=== PATIENT | female | born 1990 | race African-American/Black ===

== ENCOUNTER 2020-10-16 08:53 | Inpatient (IN) | payer OTHER ==
[2020-10-16] MEDS ORDERED: ePHEDrine SULFATE 50 MG/1 ML INJ IV PRN (10:45)
[2020-10-16] MEDS ORDERED: BUTORPHANOL 2 MG/1 ML INJ IV PRN ×2 (11:00)
[2020-10-16] MEDS ORDERED: LACTATED RINGERS 1,000 ML IV SCH (11:00)
[2020-10-16] MEDS ORDERED: ACETAMINOPHEN 325 MG TAB PO PRN (11:00)
[2020-10-16] MEDS ORDERED: OXYTOCIN DRIP 30 UNITS/500 ML BAG IV SCH ×2 (11:00)
[2020-10-16] MEDS ORDERED: LIDOCAINE (2%) 20 MG/1 ML VIAL 20 ML MDV INFILTRATI NR (11:00)
[2020-10-16 11:27] LABS: Hematocrit 34.7 % (30.3-42.9); Hemoglobin 11.7 gm/dl (10.1-14.3); Mean Corpuscular HGB Conc 34 % (30-34); Mean Corpuscular Volume 82 fl (79-97); Platelet Count 278 K/mm3 (140-440); Red Blood Count 4.22 M/mm3 (3.65-5.03); Red Cell Distribution Width 13.3 % (13.2-15.2)
[2020-10-16] MEDS ORDERED: TERBUTALINE 1 MG/1 ML INJ SUB-Q PRN (11:30)
[2020-10-16] MEDS ORDERED: fentaNYL 100 MCG/2 ML INJ IV PRN (11:30)
[2020-10-16] MEDS ORDERED: NalbUPHINE 10 MG/1 ML INJ IV PRN (11:30)
[2020-10-16] MEDS ORDERED: DINOPROSTONE 10 MG VAG SUPP VG ONE (13:09)
[2020-10-16] MEDS ORDERED: miSOPROStol 25 MCG TAB PO ONE (17:14)
[2020-10-16] MEDS: miSOPROStol 25 MCG TAB PO PRN (20:25)
[2020-10-16] MEDS ORDERED: MINERAL OIL 30 ML ORAL LIQD PO PRN (22:00)
[2020-10-17] MEDS: miSOPROStol 25 MCG TAB PO PRN ×2 (00:33→04:32)
--- NOTE | 2020-10-17 01:37 | History and Physical Report ---
History of Present Illness Date of examination: 10/17/20 Date of admission: 10/16/20 08:53 Chief complaint: scheduled induction of labor History of present illness: Pt is a 29 year old female DEISI 11/06/20 at 37w1d who presents for scheduled induction of labor secondary to gestational hypertension at term. She reports irregular contractions, and denies vaginal bleeding or leakage of fluid. She has had care at [facility] since 11 wks complicated by grandmultiparity, cystic fibrosis carrier status, h/o preclampsia in previous , H/o hemorrhage, h/o syphilis treated with titer 1:2 on 09/07/20, genital herpes without lesion or prodrome, and left labial mass x 6 years (well-circumscribed, non-tender). She is GBS negative. Pt currently denies headache, blurry vision, or RUQ pain. Past History Past Medical History: hypertension (gestational hypertension, h/o preeclampsia ) Past Surgical History: cholecystectomy REAL ESTATE DEVELOPER History: herpes, syphilis (history of, treated per patient ) Family/Genetic History: heart disease, hypertension Social history: no significant social history - Obstetrical History Expected Date of Delivery: 11/06/20 Actual Gestation: 37 Week(s) 1 Day(s) : 7 Para: 5 Hx # Term Pregnancies: 4 Number of Pregnancies: 1 Spontaneous Abortions: 1 Induced : 0 Number of Living Children: 5 Medications and Allergies Allergies Allergy/AdvReac Type Severity Reaction Status Date / Time No Known Allergies Allergy Unverified 10/16/20 10:45 Active Meds: Active Medications Acetaminophen (Acetaminophen 325 Mg Tab) 650 mg PO Q4H PRN PRN Reason: Pain, Mild (1-3) Butorphanol Tartrate (Butorphanol 2 Mg/1 Ml Inj) 1 mg IV Q2H PRN PRN Reason: Pain, Moderate(4-6) LABOR PAIN Butorphanol Tartrate (Butorphanol 2 Mg/1 Ml Inj) 2 mg IV Q2H PRN PRN Reason: Pain , Severe (7-10) Ephedrine Sulfate (Ephedrine Sulfate 50 Mg/1 Ml Inj) 10 mg IV Q2M PRN PRN Reason: Hypotension Fentanyl (Fentanyl 100 Mcg/2 Ml Inj) 100 mcg IV Q2H PRN PRN Reason: Pain,Severe (7-10) LABOR PAIN Oxytocin/Sodium Chloride (Pitocin/Ns 30 Unit/500ml) 30 units in 500 mls @ 2 mls/hr IV TITR DIMA; Protocol Lactated Ringer's (Lactated Ringers) 1,000 mls @ 125 mls/hr IV DIRECT DIMA Oxytocin/Sodium Chloride (Pitocin/Ns 30 Unit/500ml) 30 units in 500 mls @ 40 mls/hr IV TITR DIMA; Protocol Mineral Oil (Mineral Oil 30 Ml Oral Liqd) 30 ml PO QHS PRN PRN Reason: Constipation Misoprostol (Misoprostol 25 Mcg Tab) 25 mcg PO Q4H PRN PRN Reason: Labor Induction Last Admin: 10/17/20 00:33 Dose: 25 mcg Documented by: Nalbuphine HCl (Nalbuphine 10 Mg/1 Ml Inj) 10 mg IV Q2H PRN PRN Reason: Pain, Moderate (4-6) Terbutaline Sulfate (Terbutaline 1 Mg/1 Ml Inj) 0.25 mg SUB-Q ONCE PRN PRN Reason: Hyperstimulation/Hypertonicity Stop: 10/17/20 11:29 Review of Systems All systems: negative - Vital Signs Vital signs: Vital Signs Pulse BP 106 H 135/90 10/16/20 09:42 10/16/20 09:42 Temp Pulse Resp BP Pulse Ox 98.2 F 87 17 122/83 98 10/17/20 00:16 10/17/20 01:34 10/17/20 00:16 10/17/20 01:17 10/17/20 01:34 - Physical Exam Breasts: Positive: deferred Abdomen: Positive: soft (gravid ) Uterus: Positive: enlarged (gravid ) Extremities: Positive: edema (trace) - Obstetrical FHR: auscultation normal Uterine Contraction Monitor Mode: External Cervical Dilatation: 2 (per RN ) Cervical Effacement Percentage: 40 station: -3 Uterine Contraction Pattern: Irregular Uterine Tone Measurement Phase: Resting Uterine Contraction Intensity: Mild Results Result Diagrams: 10/16/20 10:00 All other labs normal. Assessment and Plan A: IUP at 37w1d Gestational Hypertension Grandmultiparity Cystic fibrosis carrier status H/o preclampsia in previous H/o hemorrhage H/o syphilis treated with titer 1:2 on 09/07/20 Genital herpes without lesion or prodrome Left labial mass x 6 years (well-circumscribed, non-tender) GBS negative P: Admit to labor and delivery Cervical Ripening (s/p cervidil, now receiving misoprostol Syphilis testing Continue to monitor maternal and status
--- NOTE | 2020-10-17 08:05 | Event Note ---
Date: 10/17/20 Pt doing well without pain medications. Category I tracing. SVE: 2. Plan to eat breakfast, shower then begin pitocin.
[2020-10-17] MEDS ORDERED: SODIUM CHLORIDE 0.9% 500 ML 500 ML IV ONE (08:06)
[2020-10-17] MEDS ORDERED: CARBOPROST TROMETHAMINE 250 MCG/1 ML INJ IM PRN (12:40)
[2020-10-17] MEDS ORDERED: miSOPROStol 200 MCG TAB PR PRN (12:40)
[2020-10-17] MEDS ORDERED: LIDOCAINE (2%) 20 MG/1 ML VIAL 20 ML MDV INFILTRATI ONE (12:40)
[2020-10-17] MEDS ORDERED: LOPERAMIDE 2 MG CAP PO PRN (12:40)
--- NOTE | 2020-10-17 12:40 | Event Note ---
Date: 10/17/20 Pt uncomfortable with contractions. Category I tracing. SVE: /-2. AROM- clear. Continue routine intrapartum care.
--- NOTE | 2020-10-17 14:11 | Procedure Note ---
OB Delivery Note - Delivery Date of Delivery: 10/17/20 Surgeon: ANA MARIA ODOM Estimated blood loss: other (400 mL) - Vaginal Delivery presentation: vertex Delivery position: OA Intrapartum events: PROM->1hr before delivery, uterine atony (s/p misoprostol 800 mcg per rectum ) Delivery induction: cervidil Delivery augmentation: rupture of membranes, pitocin Delivery monitor: external FHT, external uterine Route of delivery: Delivery placenta: spontaneous Delivery cord: nuchal cord (loose, delivered through ) Episiotomy: none Delivery laceration: none Anesthesia: intravenous - Infant A at 1 minute: 8 at 5 minutes: 9 Infant Gender: Female (2941g (6lb 7.7 oz) @ 1345 pm)
[2020-10-17] MEDS ORDERED: WITCH HAZEL/ GLYCERIN PAD TP PRN (16:15)
[2020-10-17] MEDS ORDERED: diphenhydrAMINE 25 MG CAP PO PRN (16:15)
[2020-10-17] MEDS ORDERED: OXYTOCIN DRIP 30 UNITS/500 ML BAG IV SCH (16:15)
[2020-10-17] MEDS ORDERED: BENZOCAINE/MENTHOL 20/0.5% TOP SPRAY 56 GM TP PRN (16:15)
[2020-10-17] MEDS ORDERED: LANOLIN/ZINC/DIMETHICONE (LANSINOH) 7 GM TP PRN ×2 (16:15)
[2020-10-17] MEDS ORDERED: PROMETHAZINE 25 MG RECT SUPP PR PRN (16:15)
[2020-10-17] MEDS ORDERED: MAGNESIUM HYDROXIDE (MOM) ORAL LIQD UDC PO PRN (16:15)
[2020-10-17] MEDS ORDERED: PROMETHAZINE 25 MG TAB PO PRN (16:15)
[2020-10-17] MEDS ORDERED: ONDANSETRON 4 MG/2 ML INJ IV PRN (16:15)
[2020-10-17] MEDS: IBUPROFEN 600 MG TAB PO SCH ×2 (16:41→22:17)
[2020-10-17] MEDS: FERROUS SULFATE 325 MG TAB PO SCH (22:18)
[2020-10-18] MEDS: HYDROcodone/ACETAMINOPHEN 5-325 MG TAB PO PRN ×3 (01:47→20:14)
[2020-10-18 03:21] LABS: Hematocrit 27.2 % (30.3-42.9); Hemoglobin 9.2 gm/dl (10.1-14.3)
[2020-10-18] MEDS: IBUPROFEN 600 MG TAB PO SCH (05:51)
[2020-10-18] MEDS ORDERED: MEASLES, MUMPS & RUBELLA 12,500 UNIT/0.5 ML VACCINE SUB-Q ONE (06:00)
[2020-10-18] MEDS ORDERED: TETANUS,DIPH,PERTUSS(ACELL) VACCINE 0.5 ML SYRINGE IM ONE (06:00)
[2020-10-18] MEDS: FERROUS SULFATE 325 MG TAB PO SCH ×2 (10:33→21:21)
--- NOTE | 2020-10-18 11:57 | Progress Note ---
Assessment and Plan A: PPD #1 s/p at 37 wks after induction for gestational hypertension Hemorrhage s/p misoprostol, Hemabate and second bag of pitocin, bleeding currently acceptable P: Continue to monitor BP curve and bleeding Anticipate discharge tomorrow with follow up appt in 1 wk for BP check Subjective - Subjective Date of service: 10/18/20 Principal diagnosis: s/p at term, gestational hypertension, PPH Interval history: Yesterday after delivery pt began passing large clots, and was given a second bag of pitocin and Hemabate with improvement in her bleeding. This morning she reports no more clots. She has no other complaints. Patient reports: appetite normal, voiding normally, pain well controlled, ambulating normally : doing well Objective - Vital Signs Latest vital signs: Vital Signs Temp Pulse Resp BP BP Pulse Ox 10/18/20 07:47 97.6 F 80 18 108/69 97 10/18/20 01:03 98.0 F 94 H 20 124/77 95 10/17/20 20:41 98.2 F 97 H 20 125/76 97 10/17/20 17:45 154/96 10/17/20 15:50 99.0 F 98 H 18 139/87 98 10/17/20 15:29 97 H 136/80 10/17/20 15:17 98.5 F 97 H 14 136/80 10/17/20 15:10 61 80 L 10/17/20 15:08 98 H 136/78 10/17/20 15:06 109 H 99 10/17/20 15:04 90 84 10/17/20 15:02 78 132/83 10/17/20 15:01 98 H 91 10/17/20 14:57 93 H 133/76 10/17/20 14:56 90 95 10/17/20 14:52 88 132/75 10/17/20 14:51 91 H 100 10/17/20 14:47 84 141/79 10/17/20 14:46 91 H 98 10/17/20 14:42 82 130/74 10/17/20 14:41 94 H 99 10/17/20 14:38 90 135/65 10/17/20 14:36 92 H 100 10/17/20 14:33 102 H 137/74 10/17/20 14:31 106 H 98 10/17/20 14:29 93 H 150/72 05 14:28 88 92 06 14:26 97 H 99 10/17/20 14:22 82 129/83 10/17/20 14:21 88 100 10/17/20 14:17 90 134/78 10/17/20 14:16 85 100 10/17/20 14:12 91 H 125/78 10/17/20 14:11 89 99 10/17/20 14:08 92 H 128/87 10/17/20 14:06 95 H 99 10/17/20 14:05 100 H 129/83 10/17/20 14:01 97.8 F 85 16 132/72 100 10/17/20 13:58 71 132/72 10/17/20 13:56 89 100 10/17/20 13:54 80 119/89 89 10/17/20 13:53 88 125/69 10/17/20 13:51 76 100 10/17/20 13:48 96 H 137/84 10/17/20 13:46 113 H 98 10/17/20 13:41 100 H 99 10/17/20 13:36 97 H 99 10/17/20 13:32 94 H 142/84 10/17/20 13:31 92 H 100 10/17/20 13:30 88 94 10/17/20 13:26 87 99 10/17/20 13:25 81 92 10/17/20 13:21 100 H 98 10/17/20 13:16 89 99 10/17/20 13:11 90 98 10/17/20 13:06 89 98 10/17/20 13:03 85 140/82 10/17/20 13:01 83 98 10/17/20 12:56 73 98 05 12:51 96 H 96 10/17/20 12:46 102 H 96 10/17/20 12:41 98 H 99 10/17/20 12:36 97 H 98 10/17/20 12:32 86 123/76 10/17/20 12:31 95 H 100 10/17/20 12:26 98 H 97 10/17/20 12:21 94 H 100 10/17/20 12:16 99 H 97 10/17/20 12:11 40 L 83 L 10/17/20 12:05 94 H 98 10/17/20 12:02 93 H 129/87 10/17/20 12:00 97 H 99 10/17/20 11:55 102 H 98 Intake and Output 10/17/20 10/18/20 10/18/20 22:59 06:59 14:59 Intake Total 360 240 Output Total 300 Balance 60 240 Intake: Oral 360 240 Output: Urine 300 Void 300 Other: Total, Intake Amount 360 240 Total, Output Amount 100 # Voids Void 2 - Exam Breasts: Present: deferred Uterus: Present: fundal height at umbilicus Extremities: Present: normal - Labs Labs: Abnormal lab results 10/18/20 Range/Units 02:50 Hgb 9.2 L (10.1-14.3) gm/dl Hct 27.2 L D (30.3-42.9) %
--- NOTE | 2020-10-18 12:02 | Discharge Summary ---
Providers - Providers Date of Admission: 10/16/20 08:53 Date of discharge: 10/19/20 Attending physician: ANA MARIA ODOM 10/17/20 16:15 Consult to Apartment Maintenance Technician [CONS] Routine Reason For Exam: assistance with , SNS Primary care physician: SEAFOOD CLERK Hospitalization Reason for admission: induction of labor Delivery: Procedure details: Please see delivery note. Episiotomy: none Laceration: none Other procedures: none complications: uterine atony Discharge diagnosis: IUP at term delivered [place] baby: female Hospital course: The patient was admitted the patient was admitted to the hospital for induction of labor secondary to gestational hypertension at 37 weeks. She ultimately delivered a viable female via spontaneous vaginal delivery. Her course was complicated by hemorrhage treated with misoprostol rectally, Hemabate and additional Pitocin. She met discharge criteria on day #2. She will follow-up in the office in 1 week for blood pressure check. Condition at discharge: Stable Disposition: DC-01 TO HOME OR SELFCARE - Discharge Diagnoses (1) Term of female Status: Acute (2) Multiparity, grand, in labor and delivery, delivered Status: Acute (3) hemorrhage Status: Acute Qualifiers: hemorrhage type: unspecified Qualified Code(s): O72.1 - Other immediate hemorrhage (4) Uterine atony Status: Acute (5) Gestational hypertension Status: Acute Qualifiers: Trimester: third trimester Qualified Code(s): O13.3 - Gestational [-induced] hypertension without significant proteinuria, third trimester (6) Acute blood loss anemia Status: Acute Plan - Discharge Medications Prescriptions: Ferrous Sulfate [Feosol 325 MG tab] 325 mg PO BID #60 tablet Ibuprofen [Motrin] 800 mg PO Q8HR PRN #30 tablet PRN Reason: Pain , Severe (7-10) HYDROcodone/APAP 5-325 [[place] 5/325] 1 each PO Q6HR PRN #10 tablet PRN Reason: Pain - Provider Discharge Summary Activity: routine, no sex for 6 weeks, no heavy lifting 4 weeks, no strenuous exercise Diet: routine Instructions: routine Additional instructions: [] Smoking cessation referral if applicable(refer to patient education folder for contact #) [] Refer to [facility]'s [facility] Booklet Call your doctor immediately for: * Fever > 100.5 * Heavy vaginal bleeding ( >1 pad per hour) * Severe persistent headache * Shortness of breath * Reddened, hot, painful area to leg or breast * Drainage or odor from incision. * Keep incision clean and dry at all times and follow doctor's instructions regarding bathing/showering - Follow up plan Follow up: PRIMARY CARE, [Primary Care Provider] - 7 Days ANA MARIA ODOM MD [Staff Physician] - 7 Days (please schedule a blood pressure check )
[2020-10-18] MEDS ORDERED: IBUPROFEN 600 MG TAB PO SCH (12:11)
[2020-10-18] MEDS: IBUPROFEN 800 MG TAB PO SCH ×2 (12:51→17:44)
[2020-10-19] MEDS: IBUPROFEN 800 MG TAB PO SCH ×2 (00:48→09:31)
[2020-10-19] MEDS: HYDROcodone/ACETAMINOPHEN 5-325 MG TAB PO PRN (05:33)
[2020-10-19] MEDS: FERROUS SULFATE 325 MG TAB PO SCH (09:30)
[2020-10-19 12:36] VITALS: BP 139/87
== END 2020-10-19 13:00 | disposition home or self-care (01) | DRG 806 ==
LOC: LD 08:53 → OB 10-17 15:47
PROVIDERS: ADMIT Obstetrics & Gynecology; ATTEND Obstetrics & Gynecology
PROC: 10E0XZZ Delivery of Products of Conception, External Approach (ICD-10-PCS; principal; 2020-10-17)
PROC: 3E0P7VZ Introduction of Hormone into Female Reproductive, Via Natural or Artificial Opening (ICD-10-PCS; 2020-10-17)
PROC: 10907ZC Drainage of Amniotic Fluid, Therapeutic from Products of Conception, Via Natural or Artificial Opening (ICD-10-PCS; 2020-10-17)
PROC: 3E0234Z Introduction of Serum, Toxoid and Vaccine into Muscle, Percutaneous Approach (ICD-10-PCS; 2020-10-18)
DX: O13.4 Gestational [pregnancy-induced] hypertension without significant proteinuria, complicating childbirth (principal); O98.32 Other infections with a predominantly sexual mode of transmission complicating childbirth; Z37.0 Single live birth; D62 Acute posthemorrhagic anemia; O42.92 Full-term premature rupture of membranes, unspecified as to length of time between rupture and onset of labor; O69.81X0 Labor and delivery complicated by cord around neck, without compression, not applicable or unspecified; A60.00 Herpesviral infection of urogenital system, unspecified; Z20.822 Contact with and (suspected) exposure to COVID-19; O72.1 Other immediate postpartum hemorrhage; Z3A.37 37 weeks gestation of pregnancy; O67.9 Intrapartum hemorrhage, unspecified; O99.02 Anemia complicating childbirth; Z23 Encounter for immunization
CPT/HCPCS: 36415; 59200; 85014; 85018; 85027; 86592; 86850; 86900; 86901; 86920; 88307; 96360; 99211; G0378; G0463; J2590; J3010; J7120; U0003

== ENCOUNTER 2021-01-27 08:17 | Day surgery (SDC) | payer OTHER ==
[2021-01-25 13:02] LABS: Hematocrit 41.8 % (30.3-42.9); Hemoglobin 14.4 gm/dl (10.1-14.3); Mean Corpuscular HGB Conc 34 % (30-34); Mean Corpuscular Volume 83 fl (79-97); Platelet Count 271 K/mm3 (140-440); Red Blood Count 5.05 M/mm3 (3.65-5.03); Red Cell Distribution Width 14.2 % (13.2-15.2)
--- NOTE | 2021-01-26 18:06 | Short Stay Summary ---
Short Stay Documentation Date of service: 01/27/21 Narrative H&P: 30-year-old who presents with findings of a vulvar cyst with the patient has noted discomfort. The cyst has been persistent without spontaneous resolution. She is elected for surgical management. Patient has been reassessed/reevaluated/re-examined. H&P has been reviewed. No interval changes. - History Principal diagnosis: Vulvar cyst Past Medical History: other (Syphilis) Past Surgical History: cholecystectomy Social history: - Allergies and Medications Current Medications: Allergies No Known Allergies Allergy (Verified 01/25/21 06:02) Home Medications Medication Instructions Recorded Confirmed Last Taken Type Vit-Fe Fumar-FA [ 1 tab PO QDAY 01/25/21 01/25/21 Unknown History Vitamin] Active Medications Acetaminophen (Acetaminophen 500 Mg Tab) 1,000 mg PO PREOP DIMA Stop: 01/27/21 20:00 Lactated Ringer's (Lactated Ringers) 1,000 mls @ 100 mls/hr IV DIRECT DIMA Stop: 01/27/21 23:59 Midazolam HCl (Midazolam 2 Mg/2 Ml Inj) 2 mg IV PREOP NR Stop: 01/27/21 20:00 Scopolamine (Scopolamine Transdermal Patch 72 Hr) 1 each TD PREOP NR Stop: 01/27/21 20:00 - Physical exam General appearance: no acute distress Integumentary: no rash HEENT: Atraumatic Lungs: Clear to auscultation Breasts: deferred Heart: Regular rate Gastrointestinal: normal - Brief post op/procedure progress note Date of procedure: 01/27/21 Pre-op diagnosis: Vulvar mass Post-op diagnosis: same Procedure: Excision of vulvar mass Anesthesia: GETA Surgeon: JEYSON VINCENT Estimated blood loss: minimal Pathology: list (Lipoma) Specimen disposition: to lab Condition: stable - Hospital course Hospital course: The patient was admitted the day of surgery and underwent excision of a vulvar mass. Please see operative note for details of surgery. Her postoperative course was uneventful. - Disposition Condition at discharge: Good Disposition: 01 HOME / SELF CARE / HOMELESS Short Stay Discharge Plan Activity: other (Pelvic rest for 2 weeks) Diet: regular Additional Instructions: Patient may schedule follow-up with Dr. Vincent in 2 to 4 weeks
[~2021-01-27 08:17] MED LIST: ACETAMINOPHEN 500 MG TAB PO SCH; LACTATED RINGERS 1,000 ML IV SCH; MIDAZOLAM 2 MG/2 ML INJ IV NR; SCOPOLAMINE TRANSDERMAL PATCH 72 HR TD NR; ceFAZolin/Water 2 GM/20 ML 2 GM/20 ML SYRINGE IV NR
[2021-01-27] MEDS ORDERED: propofoL 200 MG/20 ML VIAL IV ONE (08:56)
[2021-01-27] MEDS ORDERED: HYDROmorphone 1 MG/1 ML INJ ONE (08:56)
[2021-01-27] MEDS ORDERED: LIDOCAINE MPF (2%) 20 MG/1 ML VIAL 5 ML ONE (08:56)
[2021-01-27] MEDS ORDERED: HYDROcodone/ACETAMINOPHEN 5-325 MG TAB PO PRN (09:05)
[2021-01-27] MEDS ORDERED: ONDANSETRON 4 MG/2 ML INJ IV PRN (09:05)
[2021-01-27] MEDS ORDERED: HYDROmorphone 1 MG/1 ML INJ IV PRN (09:05)
--- NOTE | 2021-01-27 09:05 | Anesthesia Day of Surgery ---
Anesthesia Day of Surgery - Day of Surgery Patient Examined: Yes Patient H&P Reviewed: Yes Patient is NPO: Yes
--- NOTE | 2021-01-27 09:05 | Anesthesia Consultation ---
Anesthesia Consult and Med Hx Date of service: 01/27/21 - Airway Anesthetic Teeth Evaluation: Good ROM Head & Neck: Adequate Mental/Hyoid Distance: Adequate Mallampati Class: Class II Intubation Access Assessment: Probably Good - Pre-Operative Health Status ASA Pre-Surgery Classification: ASA2 Proposed Anesthetic Plan: General - Pulmonary Hx Smoking: Yes (quit 4-5yrs ago) Hx Respiratory Symptoms: No - Cardiovascular System Hx Hypertension: No - Central Nervous System CVA: No - Endocrine Hx Renal Disease: No Hx Liver Disease: No Hx Insulin Dependent Diabetes: No Hx Non-Insulin Dependent Diabetes: No Hx Thyroid Disease: No - Other Systems Hx Obesity: No - Additional Comments Anesthesia Medical History Comments: No hx anesthetic complications.
[2021-01-27] MEDS ORDERED: LIDOCAINE 1%/EPINEPHRINE 1:100,000 VIAL (20 ML) INFILTRATI ONE ×2 (09:47→10:00)
[2021-01-27] MEDS ORDERED: SODIUM CHLORIDE 0.9% IRR 1,500 ML BOTTLE IR ONE (10:00)
[2021-01-27] MEDS ORDERED: dexAMETHasone 20 MG/5 ML VIAL ONE (10:02)
[2021-01-27] MEDS ORDERED: ONDANSETRON 4 MG/2 ML INJ ONE (10:03)
[2021-01-27] MEDS ORDERED: KETOROLAC 30 MG/1 ML INJ ONE (10:10)
--- NOTE | 2021-01-27 10:15 | Operative Report ---
Operative Report Operative Report: Date of procedure: January 27, 2021 Pre-operative diagnosis: Left vulvar mass Post-operative diagnosis: Same as above Procedure name(s): Excision of vulvar mass Surgeon: Nighat Ceja M.D. Buyer Agent: None Estimated blood loss: Minimal Anesthesia: General tracheal anesthesia Findings 2 cm left vulvar mass likely consistent with a lipoma Indication: 30-year-old -1-1-6 with a history of a left vulvar mass. The patient elects for surgical excision of the lesion. Procedure Patient was taken to the operating room and given general endotracheal anesthesia without complication. A timeout was performed to confirm the identity and procedure for the patient. The patient was prepped and draped in a normal sterile fashion. Lidocaine with epinephrine was injected into the surgical site. The palpable mass was excised with the scalpel. The surgical edges were reapproximated with 4-0 Vicryl in a subcuticular fashion. Specimen was sent to pathology for evaluation. The patient was successfully extubated and taken to the recovery room in stable condition. All sponge laps and needle counts correct x2.
[2021-01-27 11:12] VITALS: BP 118/82
--- NOTE | 2021-01-27 13:48 | Post Anesthesia Evaluation ---
- Post Anesthesia Evaluation Patient Participated: Yes Airway Patent: Yes Stable Respiratory Function: Yes Nausea/Vomiting: No Temp > 96.8F: Yes Pain Manageable: Yes Adequeate Hydration: Yes Anesthesia Complications: No
== END 2021-01-27 12:05 | disposition home or self-care (01) ==
LOC: OR 08:17
PROVIDERS: ATTEND Obstetrics & Gynecology
DX: N90.69 Other specified hypertrophy of vulva (principal); D50.9 Iron deficiency anemia, unspecified; Z87.891 Personal history of nicotine dependence; Z90.49 Acquired absence of other specified parts of digestive tract; Z98.890 Other specified postprocedural states; Z79.899 Other long term (current) drug therapy; Z20.822 Contact with and (suspected) exposure to COVID-19
CPT/HCPCS: 11422; 36415; 84703; 85027; 88304; J0690; J1100; J1170; J1885; J2250; J2405; J2704; J7120; U0003